=== PATIENT | female | born 1990 | race Caucasian/White ===

== ENCOUNTER 2019-04-16 08:35 | Inpatient (IN) ==
[2019-04-16] MEDS ORDERED: OXYTOCIN 30 UNITS/500 ML BAG IV PRN ×3 (08:56→11:26)
[2019-04-16] MEDS ORDERED: LACTATED RINGER'S 1,000 ML IV PRN (08:56)
--- NOTE | 2019-04-16 09:11 | History & Physical Report ---
Date of Service April 16, 2019 Assessment & Plan (1) Rupture of membranes with clear amniotic fluid: Millie Dahl is a 28yo who presents at 40+ with spontaneous rupture of membranes - GBS negative, blood type B+, RI - No hx gestational diabetes, hypertension, or migraines - Admit to L&D for care - She is donating cord blood - Anticipate epidural - IVFM LR 125cc/hr - Oxytocin induction 2x2 protocol (2) 40 weeks gestation of : History of Present Illness Chief Complaint: Rupture of Membranes Primary Care Provider: NO PCP Millie Dahl is a 28yo who presents at 40+ with spontaneous rupture of membranes Her water broke and she had a gush of fluid this morning at around 6am. She had been having contractions prior, they seemed to have been ~ every 8 minutes. She has passed her mucous plug, no other vaginal discharge/bleeding prior to rupture of membranes. She has been feeling contractions since RoM. She continues to feel good movement, no concerns for movement. She is planning on an epidural. She is planning to donate cord blood. Would like induction if reasonable. She is here with her who would like to cut the cord during delivery. No other questions or concerns at this time. She is GBS negative, blood type B+, VDRL/RPR nonreactive She does not have gestational diabetes , hypertension, or clots/strokes. No FHx of clotting/bleeding disorders. No history of migraines. Hx of anemia and past history of shingles with no active lesions. No other chronic medical problems. She takes a vitamin. Takes no other medications SHx: No history of [employer]/abdominal surgeries. Hx of wisdom tooth extraction and eye surgery in childhood. No complications with her prior delivery/labor. No adverse reactions to anesthesia. NKDA Social: Nonsmoker. No alcohol use. No substance use during . She is a pharmacist at [employer] She lives with her Last who is FOB, feels safe at home. Has running water/heat/electric at home with no safety/environmental concerns. Allergies Allergy/AdvReac Type Severity Reaction Status Date / Time No Known Allergies Allergy Mild Verified 04/16/19 09:50 Home Medications Home Medications Medication Instructions Recorded Confirmed Type vit-iron fum-folic ac 1 tab PO DAILY 06/12/19 06/12/19 History [ Vitamin] Patient History Family History Father Hypertension Mother Hypertension Grandfather (Maternal) Cancer Social History Preferred Language: Latvian Communication Ability: Effective Beliefs That Will Affect Care: None marital status: Current Living Situation: Family Other Information That Helps Us Care for You: No Feels Safe at Home: Yes Smoking Status: Never smoker Do You Dip or Chew Tobacco: No Hx Alcohol Use: No Hx Substance Use: No Review of Systems no fever, no chills, no sweats, no body aches, no fatigue and no weakness no blind spots, no diplopia, not seeing flashes, no spots in vision and no worsening vision no ear pain, no dizziness, no nasal congestion, no nasal discharge, no sore throat, no hoarseness, no dysphagia and no pain with swallowing no cough, no chest congestion, no change in sputum, no dyspnea, no dyspnea on exertion, no pain on inspiration and no wheezing no chest pain, no chest pain at rest, no chest pain with activity, no dyspnea, no dyspnea at rest, no dyspnea on exertion, no orthopnea, no palpitations, no lightheadedness, no edema and no calf pain no abdominal pain, no heartburn, no nausea, no vomiting, no constipation and no diarrhea/loose stools no dysuria, no difficulty urinating, no urinary hesitancy, no genital lesions and no vaginal discharge no back pain, no neck pain, no joint pain, no myalgia, no muscle weakness and no body aches no acne, no rash, no lesions, no new lesions and no changing lesions no generalized weakness, no loss of sensation, no tingling, no numbness, no paresthesia, no syncope, no headache(s) and no confusion no depression and no anxiety Physical Exam Physical Exam: General: A&Ox3. NAD. Cooperative. HEENT: Atraumatic, normocephalic. Pulm: CTAB A&P. -wheezes, -rales, -rhonchi. Symmetrical chest rise. No increase work of breathing. No respiratory distress. Cardiac: RRR, -mrg. Radial pulses intact and symmetrical. Abdominal: Nontender, distension consistent with third trimester of , soft. BS present. No RUQ tenderness. Neuro: PERLAA, EoM intact, visual acuity grossly intact. No facial asymmetry, no dysarthria. Bicepts, patellar DTR 2+ bilaterally. No ankle clonus. Sensation intact and symmetrical in distal extremities. Moves all extremities equally. Results & Data Vital Signs (Past 12 Hours) Vital Signs Temp Pulse Resp BP 04/16/19 08:47 36.8 C 20 04/16/19 08:46 80 107/74 Supervising Physician Co-Signing Physician Notes Agree with the above findings and plan Resident Activity Tracking Resident Involvement: Resident Care Provided Care Provided: Adult Hospital Medicine
[2019-04-16 09:23] LABS: Hematocrit (blood only) 35.7 % (37-47); Hemoglobin 12.6 g/dL (12.0-16.0); Mean Corpuscular Volume 87.1 fL (80-100); Mean Platelet Volume 10.6 fL (7.4-10.4); Platelet Count 174 K/uL (130-400); RDW Coefficient of Variation 13.9 % (11.5-14.5); RDW Standard Deviation 44.2 fL (36.4-46.3); White Blood Count 15.47 K/uL (4.8-10.8)
[2019-04-16 09:43] LABS: Mean Corpuscular Hgb Conc 35.3 g/dL (32-36)
[2019-04-16] MEDS ORDERED: BUPIVACAINE 0.25% 30 ML VIAL ONE (10:16)
[2019-04-16] MEDS ORDERED: fentaNYL citrate 100 MCG/2 ML VIAL ONE (10:16)
[2019-04-16] MEDS ORDERED: ePHEDrine sulfate 50 MG/ML AMP ONE (10:16)
[2019-04-16] MEDS ORDERED: fentaNYL 2MCG/ML ROPIV 1.25MG/ML 100 ML BAG EPI ONE (10:17)
[2019-04-16] MEDS ORDERED: IBUPROFEN 600 MG TAB PO ONE (11:07)
[2019-04-16] MEDS ORDERED: HYDROCORTISONE ACETATE 25 MG SUPP PR PRN (11:26)
[2019-04-16] MEDS ORDERED: BENZOCAINE 20% AER SPR 82.5 GM CAN EXT PRN (11:26)
[2019-04-16] MEDS ORDERED: DIPHTHERIA/TETANUS/PERTUSSIS 0.5 ML SYR/VIAL IM ONE (11:26)
[2019-04-16] MEDS ORDERED: IBUPROFEN 600 MG TAB PO PRN (11:26)
[2019-04-16] MEDS ORDERED: ACETAMINOPHEN 325 MG TAB PO PRN (11:26)
[2019-04-16] MEDS ORDERED: BISACODYL 10 MG SUPP PR PRN (11:26)
[2019-04-16] MEDS ORDERED: SUPERCREAM 0.870% 15 GM JAR EXT PRN (11:26)
[2019-04-16] MEDS: DOCUSATE SODIUM 100 MG CAP PO SCH (20:06)
--- NOTE | 2019-04-16 21:17 | Delivery Summary ---
DATE OF OPERATION: 04/16/2019 PROCEDURE: Normal spontaneous vaginal delivery, second degree laceration repair. SURGEON: Franki Cummings MD PREOPERATIVE DIAGNOSES: 1. Single intrauterine at term. 2. Spontaneous rupture of membranes. 3. Labor. POSTOPERATIVE DIAGNOSES: 1. Single intrauterine at term. 2. Spontaneous rupture of membranes. 3. Labor. 4. Delivered. ESTIMATED BLOOD LOSS: 200 mL. DRAINS: None. FLUIDS: Continuous lactated ringer. URINE OUTPUT: Not measured. FINDINGS: Viable male with weight pending and Apgars of 9 and 9 at 1 and 5 minutes respectively. INDICATIONS: The patient is a 28-year-old G2, P1-0-0-1 admitted at term with spontaneous rupture of membranes. At time of presentation, the patient was cele about every 10 minutes with only mild contractions noted. The patient was offered to start an oxytocin versus a trial period to see if spontaneous labor would ensue. The patient opted to proceed with oxytocin and progressed in labor to complete-complete +2, at which time she felt the urge to push. DESCRIPTION OF PROCEDURE: The patient progressed to 10 cm dilated, 100% effaced, +2 station, pushed over intact perineum without anesthesia and delivered a viable male with weight and Apgars as noted above. Head of delivered in AMANDA position restituted to right transverse. Nuchal cord was noted. Body and shoulders quickly followed. was noted to be vigorous upon delivery. A 1-minute delayed cord clamping was initiated which the cord was double clamped and cut, cord blood for donation was then obtained. Attention was then turned to deliver the placenta, was delivered intact with 3-vessel cord with gentle cord traction. Inspection of the perineum, vagina, cervix was noted to be second degree perineal laceration which was repaired with a traditional fashion using 3-0 Vicryl. Needle, sponge and instrument counts were correct at the completion of the case. Both mother and were stable in the immediate post-delivery period. I attest to the content of the Intraoperative Record and any orders documented therein. Any exception s are noted below.
--- NOTE | 2019-04-17 06:32 | Obstetrical Progress Note ---
Date of Service <Jamie Venegas MD - Last Filed: 04/17/19 06:32> April 17, 2019 Assessment & Plan <Jamie Venegas MD - Last Filed: 04/17/19 06:32> (1) Normal vaginal delivery: Millie Dahl is a 28yo who presented at 40+ with spontaneous rupture of membranes now s/p PPD#1 - GBS negative, blood type B+, RI - Feels well today. Eating well, voiding well, ambulating well. - well without difficulty - Pain well controlled with ibuprofen 600mg Q4H PRN/APAP. - Routine care - After discharge will have [address] Cummings. Subjective <Jamie Venegas MD - Last Filed: 04/17/19 06:32> Ambulation: ambulating normally Voiding: no voiding problems Passing Gas:: Yes Diet Tolerance:: regular diet Lochia:: Moderate Feeding Type:: breast feeding Current Pain Level(1-10): 0 Review of Systems Denies fever, chills, sweats Denies shortness of breath, difficulty breathing, chest pain, palpitations, chest pressure. Denies breast pain. Denies dysuria. Denies headache. Physical Exam <Jamie Venegas MD - Last Filed: 04/17/19 06:32> General: Alert, oriented. No acute distress. Cardiac: Regular rate and rhythm, no murmurs/rubs/gallops. Respiratory: Clear to auscultation anterior and posteriorly, no wheezes/rales/rhonchi. No increased work of breathing. Symmetrical chest rise. No respiratory distress. Abdomen: Soft, nontender, nondistended. Bowel sounds present. Uterus: Uterine fundus firm, palpable 2cm below umbilicus. Lower Extremities: No lower extremity edema or swelling. No deep calf pain. Tyler's negative bilaterally. Results & Data <Jamie Venegas MD - Last Filed: 04/17/19 06:32> Vital Signs (Past 12 Hours) Vital Signs Temp Pulse Resp BP 04/17/19 05:10 37.0 C 69 18 108/72 04/16/19 23:35 36.9 C 66 18 111/72 04/16/19 20:07 36.8 C 70 18 112/71 <Franki Cummings MD - Last Filed: 04/23/19 09:30> Co-Signing Physician Notes Patient evaluated and agree with the above findings and plan Resident Activity Tracking <Jamie Venegas MD - Last Filed: 04/17/19 06:32> Resident Involvement: Resident Care Provided Care Provided: Adult Hospital Medicine
[2019-04-17 08:02] LABS: Hematocrit (blood only) 34.5 % (37-47); Hemoglobin 11.7 g/dL (12.0-16.0); Mean Corpuscular Hgb Conc 33.9 g/dL (32-36); Mean Corpuscular Volume 87.8 fL (80-100); Mean Platelet Volume 10.7 fL (7.4-10.4); Platelet Count 179 K/uL (130-400); RDW Coefficient of Variation 13.9 % (11.5-14.5); RDW Standard Deviation 45.1 fL (36.4-46.3); Red Blood Count 3.93 M/uL (4.2-5.4); White Blood Count 15.33 K/uL (4.8-10.8)
[2019-04-17] MEDS: DOCUSATE SODIUM 100 MG CAP PO SCH (08:45)
[2019-04-17] MEDS ORDERED: PRENATAL VITAMIN 1 TAB PO SCH (09:00)
[2019-04-17] MEDS ORDERED: FERROUS SULFATE 325 MG TAB PO SCH (09:00)
[2019-04-17] MEDS ORDERED: BISACODYL 5 MG TABEC PO SCH (20:00)
== END 2019-04-17 14:45 | disposition home or self-care (01) | DRG 807 ==
LOC: OPB 08:35 → 4S1 08:38 → 4S2 15:13
DX: O70.1 Second degree perineal laceration during delivery; Z37.0 Single live birth; Z3A.40 40 weeks gestation of pregnancy

== ENCOUNTER 2021-09-16 07:41 | Inpatient (IN) ==
[2021-09-16] MEDS ORDERED: OXYTOCIN 30 UNITS/500 ML BAG IV PRN ×3 (07:50→14:40)
[2021-09-16] MEDS: LACTATED RINGER'S 1,000 ML IV PRN ×2 (08:05→11:06)
[2021-09-16 08:13] LABS: Hematocrit (blood only) 38.3 % (37-47); Hemoglobin 12.8 g/dL (12.0-16.0); Mean Corpuscular Hemoglobin 30.2 pg (25-34); Mean Corpuscular Hgb Conc 33.4 g/dL (32-36); Mean Corpuscular Volume 90.3 fL (80-100); Mean Platelet Volume 11.2 fL (7.4-10.4); Platelet Count 194 K/uL (130-400); RDW Coefficient of Variation 13.7 % (11.5-14.5); RDW Standard Deviation 45.1 fL (36.4-46.3); Red Blood Count 4.24 M/uL (4.2-5.4); White Blood Count 12.27 K/uL (4.8-10.8)
--- NOTE | 2021-09-16 10:20 | History & Physical Report ---
Date of Service September 16, 2021 Assessment & Plan (1) Encounter for induction of labor: Plan: 30 yo coming in for induction of labor, doing well. -Oxytocin and fluids started on patient. Will continue to monitor progress. -Anesthesia consulted for option of epidural. -vital signs reviewed and WNL. (Tmax 37) -Blood type B+, GBS -, Rubella Immune -hemoglobin 12.8 Admission and Anticipated Discharge Date Admission Date: September 16, 2021 History of Present Illness Primary Care Provider: Evaristo Santana MD at 39 weeks and 1 day confirmed via LMP. Here for induction of labor. No complications. Has been attending OB appointments regularly. Currently taking vitamin. Contractions: Present at 4-5 mintues apart. Fluid or Blood loss: none. movement: active Labs: - B+ - Antibody screen: Negative - Hgb: 12.8 - Hct: 38.3 - WBC: 12.27 - Plt: 194 - Rubella: Immune - RPR: Nonreactive - Gonorrhea: Negative - Chlamydia: Negative - HIV: Negative - HbSAg: Negative - GBS Negative - Glucose tolerance x2: 79, 172. Allergies Allergy/AdvReac Type Severity Reaction Status Date / Time No Known Allergies Allergy Mild Verified 09/15/21 13:17 Home Medications Medication Instructions Recorded Confirmed Type vitamins-iron fumarate 27 1 tab PO DAILY 04/16/19 09/15/21 History mg iron-folic acid 0.8 mg tablet ( Vitamin) Patient History Medical History (Updated 09/16/21 @ 10:17 by Franky Camejo DO) 40 weeks gestation of History of chicken pox Normal vaginal delivery Rupture of membranes with clear amniotic fluid Surgical History (Updated 02/04/21 @ 15:28 by Lula Barrera RN) H/O wisdom tooth extraction Family History Father Hypertension Mother Hypertension Grandfather (Maternal) Cancer Social History (Updated 02/04/21 @ 15:18 by Lula Barrera RN) Smoking Status: Never smoker Hx Alcohol Use: No Hx Substance Use: No Preferred Language: [place] Communication Ability: Effective Beliefs That Will Affect Care: None marital status: marital status details: Last Plummer (30) [phone] Current Living Situation: Family Current Living Situation Comment: lives with spouse, children, hampster current occupational status: employed 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 Daughter born at 39 weeks and 2 days. Miscarriage in-between daughter and son. Son born at term at 40 weeks. Review of Systems Denies fever, chills, sweats Denies shortness of breath, difficulty breathing, chest pain, palpitations, chest pressure. Denies breast pain. Denies dysuria. Denies headache or changes in vision Physical Exam Physical Exam: General: Alert, oriented. No acute distress. Cardiac: Regular rate and rhythm, no murmurs/rubs/gallops. Respiratory: Clear to auscultation bilaterally a/p, no wheezes/rales/rhonchi. No increased work of breathing. Symmetrical chest rise. No respiratory distress. Pelvic: Dilation 2 cm; Effacement 70; Station -[address] Yu Lower Extremities: No lower extremity edema or swelling. No deep calf pain. Tyler's negative bilaterally Baseline: 140's Variability: moderate Accelerations: Present Decelerations: Not present Results & Data ([facility]) Vital Signs (Past 12 Hours) Vital Signs Temp Pulse Resp BP 09/16/21 07:49 37.0 C 104 H 20 126/80 Resident Activity Tracking Resident Involvement: Resident Care Provided Care Provided: OB Delivery
[2021-09-16] MEDS ORDERED: SODIUM CHLORIDE 0.9% INJ 10 ML VIAL ONE (10:57)
[2021-09-16] MEDS ORDERED: BUPIVACAINE 0.25% 30 ML VIAL ONE (10:57)
[2021-09-16] MEDS ORDERED: ePHEDrine sulfate 50 MG/ML AMP ONE (10:57)
[2021-09-16] MEDS ORDERED: fentaNYL citrate 100 MCG/2 ML VIAL ONE (10:58)
[2021-09-16] MEDS ORDERED: fentaNYL 2MCG/ML ROPIVACAINE 1.25MG/ML 100 ML BAG EPI ONE (10:58)
[2021-09-16] MEDS ORDERED: NALOXONE HCL 1 MG in SODIUM CHLORIDE 0.9% 1000ML 1,000 ML IV PRN (12:06)
[2021-09-16] MEDS ORDERED: NALOXONE HCL 0.4 MG/1 ML VIAL/CARP IV PRN (12:06)
[2021-09-16] MEDS ORDERED: ePHEDrine sulfate 50 MG/ML AMP IV PRN (12:06)
[2021-09-16] MEDS ORDERED: fentaNYL 2MCG/ML ROPIVACAINE 1.25MG/ML 100 ML BAG EPI PRN (12:06)
[2021-09-16] MEDS ORDERED: NALBUPHINE HCL INJ 10 MG/ML AMP IV PRN (12:06)
[2021-09-16] MEDS ORDERED: diphenhydrAMINE 50 MG/ML VIAL IV PRN (12:06)
--- NOTE | 2021-09-16 12:06 | Anesthesiology Consultation ---
Date of Service September 16, 2021 Assessment & Plan Chart Review Chart Review: Acceptable Risk for Labor Epidural Consults Requested none History Height/Weight Height: 5 ft 5 in Weight: 75.843 kg Allergies Allergy/AdvReac Type Severity Reaction Status Date / Time No Known Allergies Allergy Mild Verified 09/15/21 13:17 Medications Home Medications Medication Instructions Recorded Confirmed Last Taken vitamins-iron fumarate 27 1 tab PO DAILY 04/16/19 09/15/21 09/12/21 mg iron-folic acid 0.8 mg tablet ( Vitamin) Active Medications Generic Name Dose Route Start Last Admin Trade Name Freq PRN Reason Stop Dose Admin Lactated Ringer's 1,000 mls @ 125 mls/hr 09/16/21 07:50 09/16/21 11:35 Lr IV 09/18/21 07:49 125 mls/hr .Q8H PRN Infusion L&D Protocol Protocol Oxytocin 30 units in 500 mls @ 7 mls/hr 09/16/21 08:52 09/16/21 11:05 Pitocin IV 09/18/21 08:51 0.42 units/hr .Q24H PRN 7 mls/hr Labor Induction/Augmentation Titration Protocol 0.42 UNITS/HR Past Medical History Medical History (Updated 09/16/21 @ 10:17 by Franky Camejo DO) 40 weeks gestation of History of chicken pox Normal vaginal delivery Rupture of membranes with clear amniotic fluid Past Family History Family History Father Hypertension Mother Hypertension Grandfather (Maternal) Cancer Past Surgical History Surgical History (Updated 02/04/21 @ 15:28 by Lula Barrera, JHONY) H/O wisdom tooth extraction Social History Smoking Status: Never smoker Hx Alcohol Use: No Hx Substance Use: No Physical Exam Vital Signs Last Vital Signs Temp 37.0 C 09/16/21 10:35 Pulse 81 09/16/21 11:59 Resp 20 09/16/21 10:35 BP 109/65 09/16/21 11:57 Pulse Ox 99 09/16/21 11:59 Testing Laboratory Results 09/16/21 08:01
--- NOTE | 2021-09-16 13:58 | Delivery Summary ---
Vaginal Delivery Summary Date of Service September 16, 2021 Vaginal Delivery Summary and 1st Degree LAC Patient induced due to prior precipitous delivery past 39 weeks GBS negative Covid negative induction was started with Pitocin she then requested epidural artificial rupture of membranes was then performed for clear fluid soon after that she became fully dilated and pushed over a grand total of 1 contraction delivering a baby in occiput anterior position no nuchal cord fluid was clear gentle traction the baby no excessive force live vigorous female cord clamped and cut cord blood obtained placenta removed with gentle traction IV Pitocin started small first-degree tear repaired with 3-0 Vicryl IV Pitocin improved uterine tone and bleeding reduced sponge and instrument counts correct estimated blood loss 150 mL [facility] Vaginal Delivery Charge Delivery Type Details: and 1st Degree LAC
[2021-09-16] MEDS ORDERED: SUPERCREAM 0.870% 15 GM JAR EXT PRN (14:40)
[2021-09-16] MEDS ORDERED: oxyCODONE/ACETAMINOPHEN 5mg/325mg TAB PO PRN (14:40)
[2021-09-16] MEDS ORDERED: HYDROCORTISONE ACETATE 25 MG SUPP PR PRN (14:40)
[2021-09-16] MEDS ORDERED: BENZOCAINE 20% AER SPR 82.5 GM CAN EXT PRN (14:40)
[2021-09-16] MEDS ORDERED: ACETAMINOPHEN 325 MG TAB PO PRN (14:40)
[2021-09-16] MEDS ORDERED: bisacodyL 10 MG SUPP PR PRN (14:40)
[2021-09-16] MEDS ORDERED: DIPHTHERIA/TETANUS/PERTUSSIS 0.5 ML SYR/VIAL IM ONE (14:40)
[2021-09-16] MEDS: IBUPROFEN 600 MG TAB PO PRN ×2 (16:04→19:34)
--- NOTE | 2021-09-16 16:47 | Anesthesia Procedure Note ---
Date of Service September 16, 2021 Anesthesia Post Epidural Note Vital Signs Vital Signs: Temp Pulse Resp BP Pulse Ox 37.0 C 73 20 108/64 98 09/16/21 10:35 09/16/21 15:58 09/16/21 10:35 09/16/21 15:58 09/16/21 13:49 Notes Mental Status: alert / awake / arousable Nausea / Vomiting: adequately controlled Pain: adequately controlled Airway Patency, RR, SpO2: stable & adequate BP & HR: stable & adequate Hydration State: stable & adequate Neuraxial Anesthesia: was administered and sensory block is resolving Anesthetic Complications: no major complications apparent and Pt Satisfied with anesthetic care Epidural: Removed without complications and With tip intact
[2021-09-16] MEDS: DOCUSATE SODIUM 100 MG CAP PO SCH (20:29)
--- NOTE | 2021-09-17 06:20 | Obstetrical Progress Note ---
Date of Service <Franky Camejo DO - Last Filed: 09/17/21 07:19> September 17, 2021 Assessment & Plan <Franky Camejo DO - Last Filed: 09/17/21 07:19> (1) Encounter for care and examination after delivery: 30 yo post day 1 from vaginal delivery, doing well. -Continue routine post care. - vital signs reviewed and WNL. (Tmax 37.2) -Blood type B+, GBS -, Rubella Immune -Encourage ambulation, recommended to control pain with Motrin, tylenol PRN, resume regular diet, monitor lochia. -encourage breast feeding -hemoglobin 12.8 -Discussed discharge with patient. She is ready to go home later today. She will follow up with OB clinic in 6 weeks. <Ethan Yu MD, FACOG - Last Filed: 09/17/21 07:24> (1) Encounter for care and examination after delivery: Subjective <Franky Camejo - Last Filed: 09/17/21 07:19> Ambulation: ambulating normally Voiding: no voiding problems Passing Gas:: Yes Diet Tolerance:: regular diet Lochia:: Small Feeding Type:: breast feeding Current Pain Level(1-10): 0 Review of Systems Denies fever, chills, sweats Denies shortness of breath, difficulty breathing, chest pain, palpitations, chest pressure. Denies breast pain. Denies dysuria. Denies headache or changes in vision Physical Exam <Franky Camejo - Last Filed: 09/17/21 07:19> General: Alert, oriented. No acute distress. Cardiac: Regular rate and rhythm, no murmurs/rubs/gallops. Respiratory: Clear to auscultation bilaterally a/p, no wheezes/rales/rhonchi. No increased work of breathing. Symmetrical chest rise. No respiratory distress. Abdomen: Soft, nontender, nondistended. Bowel sounds present. Uterus: Uterine fundus firm, palpable at umbilicus. Lower Extremities: No lower extremity edema or swelling. No deep calf pain. Tyler's negative bilaterally Results & Data ([facility]) <Franky Gascajessicaleta - Last Filed: 09/17/21 07:19> Vital Signs (Past 12 Hours) Vital Signs Temp Pulse Resp BP Pulse Ox 09/17/21 03:02 36.8 C 65 18 98 09/16/21 23:30 36.7 C 64 18 120/82 98 09/16/21 19:20 37.0 C 72 16 115/73 98 <Ethan Yu MD, FACOG - Last Filed: 09/17/21 07:24> Co-Signing Physician Notes Resident Physician Supervision Note: I was present with Dr. Camejo during the history and exam. I discussed the case with the resident and agree with the findings and plan as documented in the note. Any exceptions or clarifications are listed here: [None] Documented By: Ethan Yu MD, FACOG Resident Activity Tracking <Franky Camejo DO - Last Filed: 09/17/21 07:19> Resident Involvement: Resident Care Provided Care Provided: OB Delivery
[2021-09-17] MEDS ORDERED: PRENATAL VITAMIN 1 TAB PO SCH (08:00)
[2021-09-17] MEDS: DOCUSATE SODIUM 100 MG CAP PO SCH (08:05)
[2021-09-17] MEDS ORDERED: bisacodyL 5 MG TABEC PO SCH (20:00)
== END 2021-09-17 15:15 | disposition home or self-care (01) | DRG 807 ==
LOC: 4S1 07:41 → 4S2 17:47